=== PATIENT | male | born 1950 | race African-American/Black ===

== ENCOUNTER 2016-12-28 21:48 | Emergency (ER) | payer MEDICAID, SELFPAY ==
[~2016-12-28] VITALS: Ht 167.6 cm; Wt 68.9 kg
[2016-12-28] MEDS ORDERED: Norco 5mg/325mg tab ORAL ONE (22:45)
[2016-12-28] MEDS ORDERED: IBUPROFEN600 MG ORAL (23:50)
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
[2016-12-29] VITALS: BP_SYST 109; BP_SYST 111; BP_DIAS 70; BP_DIAS 73
--- NOTE | 2016-12-29 10:21 | Diagnostic Imaging Report ---
Indication: TRAUMA Technique: Continuous helical CT scanning of the head was performed without intravenous contrast material. Axial and coronal 5 mm sections were generated. Radiation dose was minimized using automated exposure control Dose: Total Dose Length Product - DLP [address] Dose Index - CTDIvol(s) 70.38 mGy. Comparison: 05/03/2009 Findings: The ventricular system is normal in size and configuration. There is no shift of midline structures. No abnormal extra-axial fluid collections are noted. There is no evidence of intracerebral bleeding. No other abnormal high or low density areas are noted within the brain. There is a fracture deformity of the anterior right maxillary wall, also evident previously. There is left maxillary sinus disease. Impression: Normal CT scan of the head without contrast material. Left maxillary sinus disease incidentally noted This agrees with the preliminary interpretation provided overnight by [facility]. The CT scanner at [facility] is accredited by the [employer] and the scans are performed using protocols designed to limit radiation exposure to as low as reasonably achievable to attain images of sufficient resolution adequate for diagnostic evaluation.
--- NOTE | 2016-12-29 11:05 | Diagnostic Imaging Report ---
Indication: TRAUMA Technique: 3 views left hand Comparison: none Findings: There is an oblique fracture, nondisplaced, of the shaft of the third distal phalanx. This is not a through and through fracture, and only portions of the fracture line are demonstrated. No other acute fractures. No dislocations. The joint spaces are preserved.. Impression: Positive for third distal phalangeal fracture. Age indeterminate but suspect acute. Findings discussed by phone with Dr. Hoffman in the emergency room at the time of interpretation
[2016-12-29] MEDS ORDERED: SINEMET 25-1001 EAC1 ORAL (21:22)
== END 2016-12-29 | disposition home or self-care (01) ==
LOC: EMR 22:30
DX: S09.90XA Unspecified injury of head, initial encounter (principal); S20.219A Contusion of unspecified front wall of thorax, initial encounter; S60.222A Contusion of left hand, initial encounter; J45.909 Unspecified asthma, uncomplicated; Z88.2 Allergy status to sulfonamides; V43.52XA Car driver injured in collision with other type car in traffic accident, initial encounter; Y92.410 Unspecified street and highway as the place of occurrence of the external cause; Y99.8 Other external cause status
CPT/HCPCS: 70450; 99283

== ENCOUNTER 2016-12-29 21:08 | Emergency (ER) | payer MEDICAID ==
[~2016-12-29] VITALS: Ht 162.6 cm; Wt 68.9 kg
[~2016-12-29 21:08] MED LIST: IBUPROFEN600 MG ORAL
[2016-12-29] MEDS ORDERED: SINEMET 25-1001 EAC1 ORAL (21:22)
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
[2016-12-29 21:42] VITALS: BP 148/87
[2016-12-29 21:43] VITALS: BP 152/90
== END 2016-12-29 21:47 | disposition home or self-care (01) ==
LOC: EMR 21:44
DX: S62.662A Nondisplaced fracture of distal phalanx of right middle finger, initial encounter for closed fracture (principal); J45.909 Unspecified asthma, uncomplicated; Z88.2 Allergy status to sulfonamides; V49.9XXA Car occupant (driver) (passenger) injured in unspecified traffic accident, initial encounter; Y92.410 Unspecified street and highway as the place of occurrence of the external cause; Y99.8 Other external cause status
CPT/HCPCS: 29280; 99283